=== PATIENT | female | born 1995 | race Two or more races ===

== ENCOUNTER → 2019-07-02 | Outpatient (CLI) | payer OTHER ==
--- NOTE | 2019-07-02 16:51 | RADIOLOGY REPORT (SQ) ---
EXAM DESCRIPTION: U/S THYROID/SFT TISS HD NECK COMPLETED DATE/TIME: 07/02/2019 4:40 pm REASON FOR STUDY: H61.892 OTHER SPECIFIED DISORDERS OF LEFT EXTERNAL EAR H61.892 OTHER SPECIFIED DI SORDERS OF LEFT EXTERNAL EAR COMPARISON: None. TECHNIQUE: Dynamic and static grayscale images acquired of the localized site of clinical concern an d recorded on PACS. Additional selected color Doppler and spectral images recorded. SITE OF CONCERN: Left neck LIMITATIONS: None. FINDINGS: SKIN AND SUBCUTANEOUS TISSUES: Small hypoechoic circumscribed lesion in the area of palpab le abnormality. This measures 6 x 5 x 2 mm and is most consistent with lymph node. DEEP SOFT TISSUES/MUSCLES: No masses. No fluid collections. No edema. VASCULAR: No increased or decreased vascularity. No occlusions. OTHER: No other significant finding. IMPRESSION: Small soft tissue mass most consistent with benign lymph node. TECHNICAL DOCUMENTATION: JOB ID: [id number] [employer]- All Rights Reserved Reading location - IP/workstation name: [email or web address]
== END ==
LOC: RAD 15:53
PROVIDERS: ATTEND Family Medicine
DX: H61.892 Other specified disorders of left external ear (principal)
CPT/HCPCS: 76536